=== PATIENT | male | born 1950 | race African-American/Black ===

== ENCOUNTER 2017-10-30 09:22 | Inpatient (IN) | payer MEDICARE, BC ==
[~2017-10-30 09:22] MED LIST: ACETAMINOPHEN 1,000 MG/100 ML BTL IV ONE; CEFAZOLIN 2 Gram 2 GM/50 ML BAG IVPB ONE; FAMOTIDINE 20MG TABLET PO ONE; MECLIZINE 25 MG TABLET PO ONE; METOCLOPRAMIDE 10 MG TABLET PO ONE
[2017-10-30] MEDS ORDERED: DIPHENHYDRAMINE HCL IV 50 MG/ML VIAL IVP ONE (13:06)
[2017-10-30] MEDS ORDERED: OXYCODONE/APAP 7.5MG/325MG TABLET PO PRN ×2 (13:45)
[2017-10-30] MEDS ORDERED: OXYCODONE HCL 5 MG TABLET PO PRN (13:45)
[2017-10-30] MEDS ORDERED: ZOLPIDEM TARTRATE 5 MG TABLET PO PRN (13:45)
[2017-10-30] MEDS ORDERED: METOCLOPRAMIDE HCL 10 MG/2 ML VIAL IVP PRN (13:45)
[2017-10-30] MEDS ORDERED: DIPHENHYDRAMINE HCL 25 MG CAPSULE PO PRN (13:45)
[2017-10-30] MEDS ORDERED: MAGNESIUM HYDROXIDE 30 ML UDC PO PRN (13:45)
[2017-10-30] MEDS ORDERED: SENNOSIDES/DOCUSATE SODIUM UD CAPSULE PO PRN (13:45)
[2017-10-30] MEDS ORDERED: HYDROCODONE/APAP 7.5/325MG TABLET PO PRN (13:45)
[2017-10-30] MEDS ORDERED: ONDANSETRON HCL IV 4 MG/2 ML VIAL IVP PRN (13:45)
[2017-10-30] MEDS ORDERED: TRAMADOL HCL 50 MG TABLET PO PRN ×2 (13:45)
[2017-10-30] MEDS ORDERED: AL HYDROX/MAG HYDROX 30ML UD PO PRN (13:45)
[2017-10-30] MEDS ORDERED: HYDROMORPHONE HCL 1 MG/ML SYRINGE IVP PRN (13:45)
[2017-10-30] MEDS ORDERED: ALBUTEROL HFA 8 GM INHALER INH PRN (13:49)
[2017-10-30] MEDS ORDERED: HYDROMORPHONE HCL 2 MG/ML VIAL IV PRN (14:15)
[2017-10-30] MEDS ORDERED: BUPIVACAINE LIPOSOME 266MG/20ML VIAL IV ONE (14:26)
[2017-10-30] MEDS ORDERED: TRANEXAMIC ACID 1,000 MG/10 ML ML IV ONE (14:26)
[2017-10-30] MEDS ORDERED: BUPIVACAINE 0.25% W/EPI MPF 30ML VIAL IVP ONE (14:26)
[2017-10-30] MEDS ORDERED: TRANEXAMIC ACID 1,000 MG in 0.9 % SODIUM CHLORIDE 100ML 100 ML IVPB ONE (15:00)
--- NOTE | 2017-10-30 16:54 | Rehab Evaluation ---
Patient Information - Patient Information Diagnosis: Left Knee OA Ordered Treatment: PT Evaluate and Treat Status: Initial Evaluation Surgery: Yes (L TKA) Date of Surgery: 10/30/17 History: Detail (Pt. reports history of degenerative changes at left knee.) Past Med/[place] Hx Detail: Detail (Scopes prior to TKA.) Past Medical/Surgical Hx: PAST MEDICAL/SURGICAL HISTORY Past Surgical History bilat knee scopes hemorrhoidectomy stent x 1 heart 2011 cataracts bilateral PMH - Respiratory Hx Respiratory Disorders Yes Hx Asthma Yes: good control inhaler prn usually in am Hx Bronchitis Yes Hx Pneumonia Yes: first time Hx Sleep Apnea Yes Hx of CPAP Yes Hx of SOB Yes PMH - Cardiovascular Hx Cardiovascular Disorders Yes Hx Abnormal EKG Yes Hx Cardiac Catheterization Yes Hx Edema Yes: occass le edema Hx Hypertension Yes: on meds good control Hx Irregular Heartbeat Yes: pt has extra beat Hx Coronary Artery Disease Yes Hx Coronary Stent Yes: 2011 Exercise Tolerance Fair PMH - Neuro Hx Neurological Disorders Yes Hx Cerebrovascular Accident Yes: June 2015 (Full Recovery) Hx Headaches Yes: occass. Hx Neuropathy Yes: legs and feet PMH - GI Hx Gastrointestinal Disorders Yes Hx Gastroesophageal Reflux Yes PMH - Hx Genitourinary Disorders No PMH - Endocrine Hx Endocrine Disorders Yes Hx Diabetes Yes: DM2 Hx of IDDM Yes Comment: well controlled A1C 6.2 blood sugars mid 100's PMH - Musculoskeletal Hx Musculoskeletal Disorders Yes Hx Arthritis Yes: knees PMH - Psych Hx Psychiatric Problems No PMH - Hematology/Oncology Hx Hematology/Oncology No Disorders Premorbid Status: Detail (Pt. reports slowly progressive degenerative changes at left knee.) Social History: Detail (Pt. lives in a single story home and has family members who are able to provide support. Pt. is retired. 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 Pt. has 1 step to enter home from garage. Pt. does not have to access the basement following surgery. Pt. has a front wheeled walker, single point cane, standard tub, and raised toilet seat. Pt. is scheduled for OP PT at [facility] following inpatient stay.) Precautions: [place], Fall - Time With Patient Total Time Spent With Patient (Min): 45 Treatment Procedures: Detail (Physical Therapy Evaluation Completed. PT asked nursing if pt. needed O2 prior to tx and pt. was given 2L of O2 at start of tx. Pt. was left supine with call light available, B IPC, CPM LLE, CRYO LLE, nursing was notified of pt.'s status. Pt. denied SOB or dizziness at start and end of tx. Pt. denied and removed O2 via nasal cannula and stated that he did not need oxygen, he just needed his CPAP.) Subjective Information - Subjective Information Per Patient (Pt. denied nausea, SOB, dizziness, or pain at start of tx and was found supine and A&Ox3. Pt. was not on O2 and did have CPAP near pt. Pt. had feeling in all toes. Nursing had documeted O2 levels of 93% earlier today, and stated that respiratory did not feel the pt. needed O2.) Objective Data - Pain Pain Present: No - Mental Status Patient Orientation: Oriented x3 - Visual Perception Appears within normal limits for therapeutic activities - ROM Not within normal limits (L knee was not tested for range of motion. RLE was WFL all planes of movement actively. B ankles WFL. BUE WFL all planes of movement actively.) - Strength/Tone Not within normal limits (L knee flexion and extension not tested via manual muscle test. B ankle plantarflexion and dorsiflexion 5/5. RLE 5/5 grossly. Pt. independently performed SLR with bed mobility and lifted himself via trapeeze and contralateral LE for positioning of operative leg into CPM. Pt. exhibitied functional core strength when seated at bedside for upright positioning.) - Coordination Appears within normal limits for therapeutic activities - Bed Mobility Needs Assist (Pt. required VC with bed mobility to avoid twisting the operative LE and to avoid excessive varus positioning of the knee with leg raises to CPM.) - Transfers Needs Assist (Pt. was independent with sit to stand and stand to sit transfer.) - Balance Balance Sitting: Good Balance Standing: Fair (Pt. exhibited withdrawal response and trunk lean to right with standing weight shifts onto operative LE, exhibiting poor standing balance/safety awareness.) - Sensation Intact - Gait Detail (Pt. stood for 1 minute and requested to sit back down secondary to fatigue and feeling "sleepy".) - ADL's/IADL's Detail (Not assessed.) - Special Tests No Therapy Assessment - Therapy Assessment Detail (Pt. exhibits LE ROM restriction, LE weakness, poor safety awareness with bed mobility and standing, and required assistance with positioning of the operative LE/verbalizing precautions.) Patient Education - Patient Education Teaching Topic: Discharge Instructions, Disease Process, Exercise/Activity (Pt. was instructed to perform ankle pumps, quad sets, glut sets, hamstring sets.), Precautions Response: Return Demonstration, Verbalize Understanding Teaching Method: Discussion, Demonstration Teaching Recipient: Patient, Family Barriers To Learning: Other (Poor reproduction of exercises following instruction secondary to lethargy.) Problem List - Problem List Physical Therapy Problem List: Detail (1) LE weakness 2) LE ROM restriction 3) Dependent with bed mobility 4) Poor safety awareness 5) Poor standing balance) Goals - Goals Physical Therapy Goals: 1) Pt. will independently and appropriately ambulate household distances with AD. 2) Pt. will ascend and descend at least 1 step safely for return to home environment. 3) Pt. will be independent with bed mobility and transfer. 4) Pt. will verbalize good understanding of his HEP, as well as precautions. Prognosis - Prognosis Good (Pt. is expected to complete all goals set at inpatient PT and transition safely to home environment.) Plan - Plan Physical Therapy Plan: Pt. is to be seen 1-2x per day for inpatient PT until goals met for safe D/C to home environment.
[2017-10-30] MEDS: HYDROCODONE/APAP 7.5/325MG TABLET PO PRN ×2 (18:11→19:16)
[2017-10-30] MEDS: NOVOLOG FLEXPEN (INSULIN ASPART) 100 UNITS/ML SQ SCH (18:12)
[2017-10-30] MEDS: CEFAZOLIN 2 Gram 2 GM/50 ML BAG IVPB SCH (18:14)
[2017-10-30] MEDS ORDERED: ACETAMINOPHEN 325 MG TAB PO ONE (22:11)
[2017-10-30] MEDS: ACETAMINOPHEN 325 MG TAB PO PRN (22:28)
[2017-10-30] MEDS: METOPROLOL TART 50 MG TABLET PO SCH (22:28)
[2017-10-30] MEDS: OXYCODONE HCL 5 MG TABLET PO PRN (22:29)
[2017-10-31] MEDS: RINGERS SOLUTION,LACTATED 1,000 ML IV SCH ×2 (01:03→06:33)
[2017-10-31] MEDS: CEFAZOLIN 2 Gram 2 GM/50 ML BAG IVPB SCH ×2 (02:27→10:48)
[2017-10-31] MEDS: OXYCODONE HCL 5 MG TABLET PO PRN ×2 (06:24→10:28)
[2017-10-31 06:32] LABS: HEMATOCRIT 34.7 % (42.0-52.0); HEMOGLOBIN 11.9 gm/dl (14.0-18.0); MEAN CELL VOLUME 75.8 fl (81-97); MEAN CORPUSCULAR HGB CONC 34.3 g/dl (32-36); MEAN PLATELET VOLUME 10.2 fl (7.4-10.4); PLATELET COUNT 221 K/uL (130-400); RED BLOOD COUNT 4.58 M/uL (4.40-5.70); WHITE BLOOD COUNT W/O DIFF 9.2 K/uL (4.2-12.2)
[2017-10-31 06:33] LABS: MEAN CORPUSCULAR HEMOGLOBIN 25.9 pg (27-33)
[2017-10-31] MEDS ORDERED: PANTOPRAZOLE SODIUM 40 MG TABLET PO SCH (07:00)
[2017-10-31] MEDS: NOVOLOG FLEXPEN (INSULIN ASPART) 100 UNITS/ML SQ SCH ×3 (08:14→17:39)
[2017-10-31] MEDS ORDERED: LEVEMIR FLEXTOUCH 100 UNIT/ML INSULIN PEN SQ SCH (10:00)
[2017-10-31] MEDS ORDERED: HYDROCHLOROTHIAZIDE 12.5 MG CAPSULE PO SCH (10:00)
[2017-10-31] MEDS ORDERED: ATORVASTATIN 20 MG TABLET PO SCH (10:00)
[2017-10-31] MEDS ORDERED: LOSARTAN POTASSIUM 100 MG TABLET PO SCH (10:00)
[2017-10-31] MEDS ORDERED: LORATADINE 10 MG TABLET PO SCH (10:00)
[2017-10-31] MEDS: METOPROLOL TART 50 MG TABLET PO SCH (10:28)
--- NOTE | 2017-10-31 11:06 | Physical Therapy Tx Note ---
Physical Therapy Tx Note - Treatment Note Tolerated: Good Total Time Spent With Patient: 30 Physical Therapy Tx Note: Detail (The patient was sitting in his chair upon arrival. The patient was able to transfer from sit to stand independently. He was able to ambulate for about 20 feet x2 with 2WW and WBAT on L and required supervision for safety. Upon return to his room, the patient requested to go back to his bed. The patient required verbal cues to lift the affected leg with the unaffected leg into the bed. The patient was independent with scooting to the middle of the bed, but required use of the trapeze to aid with scooting and sit to supine. The patient was left laying bed with his call light in reach.) Physical Therapy Problem List: Detail (1) LE weakness 2) LE ROM restriction 3) Dependent with bed mobility 4) Poor safety awareness 5) Poor standing balance) Physical Therapy Goals: 1) Pt. will independently and appropriately ambulate household distances with AD. 2) Pt. will ascend and descend at least 1 step safely for return to home environment. 3) Pt. will be independent with bed mobility and transfer. 4) Pt. will verbalize good understanding of his HEP, as well as precautions. Prognosis: Good Physical Therapy Plan: Pt. is to be seen 1-2x per day for inpatient PT until goals met for safe D/C to home environment.
--- NOTE | 2017-10-31 12:50 | Operative Note ---
DATE OF SURGERY: 10/30/2017 Surgeon: Giovanni Hernandez DO PREOPERATIVE DIAGNOSIS: Primary osteoarthritis of the left knee. POSTOPERATIVE DIAGNOSIS: Primary osteoarthritis of the left knee. OPERATION: Left total knee arthroplasty. DESCRIPTION OF PROCEDURE: This 66-year-old male was taken to the operating room and placed in the supine position on the operating room table. Spinal anesthesia was induced by department of anesthesia. Following satisfactory anesthetic, the left lower extremity was elevated. It was prepped with Hibiclens and draped in the usual sterile fashion. Exsanguinated and the tourniquet inflated to 300 mmHg. All scrub personnel wore personal isolation suits. An anterior longitudinal midline incision was made followed by medial parapatellar arthrotomy incision. Intracondylar drill hole was made for the intramedullary alignment amado and a 10 mm 6-degree valgus cut was made in the distal femur because the patient did have a very slight flexion contracture. Wafers of bone were removed. Sizing jig was affixed. A size 72.5 was seen to be the appropriate size. The 4-in-1 cutting block was then used to cut the femur and the wafers of bone were removed. The 4-in-1 cutting block was pinned in 3 degrees of external rotation and appropriate cuts were made. We then directed our attention to the proximal tibia and an extramedullary alignment guide was used to cut the proximal tibia referencing a 10 mm cut off the lateral tibial plateau. Once the cutting block had been set in appropriate position, a 3-degree posterior slope cut was made and appropriate cut yielded a segment of bone which was removed. The remnants of the menisci and osteophytes were removed from the posterior aspect of the joint. The proximal tibia was sized to a 79 and stem punch was subsequently used. Trial components were then inserted and a 12 mm bearing was seen to be the appropriate size and the patella was cut and restored to anatomic height with a 37 x 8.6 mm patella. With the trial components in place, the knee was taken through range of motion with excellent stability, and full extension of the knee was possible with full flexion without instability. The joint was then copiously irrigated with positive lavage, lactated Ringer's solution after the trial components had been removed. The posterior, medial, and lateral corners of the joint were injected with Exparel and all bony surfaces were dried and excess cement removed after the insertion of each component. Initially, the tibial baseplate was placed followed by the tibial bearing, femoral component, and finally the patella. Once the cement had hardened, the remainder of the Exparel was injected into the periosteum and joint capsule of the proximal tibia and distal femur. The knee was seen to be very stable. A drain was placed through a separate stable incision. The arthrotomy incision was closed with #2 Vicryl. Subcutaneous tissue closed with 0 Vicryl. Skin was stapled with a Polar pack applied and the patient taken to the recovery room in satisfactory condition. GROSS PATHOLOGY: This patient demonstrated severe osteoarthritis especially noted in the medial compartment with full-thickness articular cartilage loss being noted there as well as at the patellofemoral joint with grade 2-3 changes noted in the lateral compartment. Small loose joint bodies were also identified and removed. MTDD
[2017-10-31] MEDS ORDERED: NALOXONE 0.4 MG/1 ML VIAL IV ONE (13:37)
[2017-10-31] MEDS ORDERED: HYDROMORPHONE HCL 2 MG/ML VIAL IV ONE (13:37)
[2017-10-31] MEDS ORDERED: PHENYLEPHRINE HCL 10 MG/ML VIAL IVP ONE (13:37)
[2017-10-31] MEDS ORDERED: FENTANYL PF 100MCG/2ML VIAL IV ONE (13:37)
[2017-10-31] MEDS ORDERED: ONDANSETRON HCL IV 4 MG/2 ML VIAL IVP ONE (13:37)
[2017-10-31] MEDS ORDERED: MIDAZOLAM HCL 2MG/2ML VIAL IV ONE (13:37)
[2017-10-31] MEDS ORDERED: PROPOFOL 10 MG/ML VIAL IV ONE (13:37)
--- NOTE | 2017-10-31 13:55 | Rehab Evaluation ---
Patient Information - Patient Information Diagnosis: Left Knee OA Ordered Treatment: OT Evaluate and Treat Status: Initial Evaluation Surgery: Yes (L TKA) Date of Surgery: 10/30/17 Past Medical/Surgical Hx: PAST MEDICAL/SURGICAL HISTORY Past Surgical History bilat knee scopes hemorrhoidectomy stent x 1 heart 2012 cataracts bilateral PMH - Respiratory Hx Respiratory Disorders Yes Hx Asthma Yes: good control inhaler prn usually in am Hx Bronchitis Yes Hx Pneumonia Yes: first time Hx Sleep Apnea Yes Hx of CPAP Yes Hx of SOB Yes PMH - Cardiovascular Hx Cardiovascular Disorders Yes Hx Abnormal EKG Yes Hx Cardiac Catheterization Yes Hx Edema Yes: occass le edema Hx Hypertension Yes: on meds good control Hx Irregular Heartbeat Yes: pt has extra beat Hx Coronary Artery Disease Yes Hx Coronary Stent Yes: 2011 Exercise Tolerance Fair PMH - Neuro Hx Neurological Disorders Yes Hx Cerebrovascular Accident Yes: June 2015 (Full Recovery) Hx Headaches Yes: occass. Hx Neuropathy Yes: legs and feet PMH - GI Hx Gastrointestinal Disorders Yes Hx Gastroesophageal Reflux Yes PMH - Hx Genitourinary Disorders No PMH - Endocrine Hx Endocrine Disorders Yes Hx Diabetes Yes: DM2 Hx of IDDM Yes Comment: well controlled A1C 6.2 blood sugars mid 100's PMH - Musculoskeletal Hx Musculoskeletal Disorders Yes Hx Arthritis Yes: knees PMH - Psych Hx Psychiatric Problems No PMH - Hematology/Oncology Hx Hematology/Oncology No Disorders Premorbid Status: Detail (Pt lives with in a 1 story house with 1 step and 1 railing at the entrance. He has a tub/shower combination with seat, no grab bars and an elevated toilet with grab bars. He is normally responsible for home mgmt, meal prep and laundry but and daughter will be assisting after discharge. 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.) Precautions: [place], Fall - Time With Patient Total Time Spent With Patient (Min): 35 Treatment Procedures: Detail (OT eval low complexity) Subjective Information - Subjective Information Per Patient Objective Data - Pain Pain Present: Yes (-04/17) - Mental Status Patient Orientation: Oriented x3 - Visual Perception Appears within normal limits for therapeutic activities - ROM Within normal limits (José Manuel UE AROM WNL) - Strength/Tone Within normal limits (José Manuel UE strength WNL) - Coordination Appears within normal limits for therapeutic activities - Bed Mobility Independent (Ind with supine to sit.) - Transfers Independent (Ind with sit to stand from EOB and chair.) - Balance Balance Sitting: Good Balance Standing: Fair - Sensation Intact - Gait Detail (Pt ambulated to toilet and then back to chair with 2 wheeled walker Indly.) - ADL's/IADL's Detail (Pt educated and demonstrated learning of LE dressing using modified dressing techniques.) Therapy Assessment - Therapy Assessment Detail (Pt Ind with LE dressing using modified techniques.) Problem List - Problem List Physical Therapy Problem List: Detail (1) LE weakness 2) LE ROM restriction 3) Dependent with bed mobility 4) Poor safety awareness 5) Poor standing balance) Occupational Therapy Problem List: Detail (No current OT problems identified.) Goals - Goals Physical Therapy Goals: 1) Pt. will independently and appropriately ambulate household distances with AD. 2) Pt. will ascend and descend at least 1 step safely for return to home environment. 3) Pt. will be independent with bed mobility and transfer. 4) Pt. will verbalize good understanding of his HEP, as well as precautions. Occupational Therapy Goals: No current OT goals identified. Prognosis - Prognosis Good Plan - Plan Physical Therapy Plan: Pt. is to be seen 1-2x per day for inpatient PT until goals met for safe D/C to home environment. Occupational Therapy Plan: No further IP OT recommended. Thank you for this referral.
[2017-10-31] MEDS: ACETAMINOPHEN 325 MG TAB PO PRN (14:43)
--- NOTE | 2017-10-31 16:24 | Physical Therapy Tx Note ---
Physical Therapy Tx Note - Treatment Note Tolerated: Good Total Time Spent With Patient: 30 Physical Therapy Tx Note: Detail (The patient was laying in bed upon arrival. The patient was able to transfer from supine to sit with the use of bed rails, but otherwise independent. He was able to transfer from sit to stand independently. He was able to ambulate from his room to the nurse's station (26 feet) using WBAT on R and a 2WW. He required supervision only during ambulation. He was able to ascend/descend 3 stairs with supervision for safety and verbal cues for proper gait pattern. He required CGA x1 for completing the stairs. He was returned to his room via wheelchair due to increased fatigue. Upon arrival, he was able to transfer back to bed independently, but with use of the bed rails for scooting. The patient's HEP was reviewed, which included: ankle pumps, glute. sets, quad sets, hamstring sets, and SLR. He was advised to complete 10 reps 1-2x/day. He returned demonstration and verbalized understanding. He was left in bed with his call light in reach.) Physical Therapy Problem List: Detail (1) LE weakness 2) LE ROM restriction 3) Dependent with bed mobility 4) Poor safety awareness 5) Poor standing balance) Physical Therapy Goals: 1) Pt. will independently and appropriately ambulate household distances with AD - MET - About 26 feet. 2) Pt. will ascend and descend at least 1 step safely for return to home environment - MET - required supervision only. 3) Pt. will be independent with bed mobility and transfer - MET - with use of bed rails for assistance. 4) Pt. will verbalize good understanding of his HEP, as well as precautions. Prognosis: Good Physical Therapy Plan: All inpatient PT goals have been met, and the patient will be starting outpatient PT starting Friday (11/03).
--- NOTE | 2017-11-03 10:40 | Discharge Summary ---
DATE OF ADMISSION: 10/30/2017 DATE OF DISCHARGE: 10/31/2017 SURGEON: Giovanni Hernandez DO ADMITTING DIAGNOSIS: Osteoarthritis of the left knee. DISCHARGE DIAGNOSIS: Osteoarthritis of the left knee. OPERATIVE PROCEDURE: Elective left total knee arthroplasty. HISTORY OF PRESENT ILLNESS: This 66 -year-old male was admitted to the hospital for elective total knee arthroplasty and tolerated the operative procedure well and progressed satisfactorily with physical therapy and did clear physical therapy. The patient had some intermittent low-grade fevers, which were treated with Tylenol , which seemed to bring his temperature down to normal, but these were intermittent, possibly due to other medications (narcotics). The patient, otherwise, was doing well. He had no sign of any DVT or wound infection. The patient will be discharged today. He is instructed to use his Polar Care device and his BOB hose during the day and remove them at night. He will take Percocet 7.5/325 1 or 2 every 6 hours as necessary for pain. He was given 60. He will also continue with his Eliquis 5 mg p.o. b.i.d. He will have outpatient physical therapy. Routine wound care instructions were given. He will follow up in my office in 2 weeks for staple removal. Should he have any problems prior to being seen, he was instructed to call my office. EDGAR
== END 2017-10-31 18:45 | disposition home or self-care (01) | DRG 470 ==
LOC: MEDSURG 09:22
PROVIDERS: ADMIT Orthopaedic Surgery; ATTEND Orthopaedic Surgery
PROC: 0SRD069 Replacement of Left Knee Joint with Oxidized Zirconium on Polyethylene Synthetic Substitute, Cemented, Open Approach (ICD-10-PCS; principal; 2017-10-30 11:30)
DX: M17.12 Unilateral primary osteoarthritis, left knee (principal); I10 Essential (primary) hypertension; E78.00 Pure hypercholesterolemia, unspecified; E11.9 Type 2 diabetes mellitus without complications; Z79.4 Long term (current) use of insulin; Z86.73 Personal history of transient ischemic attack (TIA), and cerebral infarction without residual deficits; Z79.01 Long term (current) use of anticoagulants; I25.10 Atherosclerotic heart disease of native coronary artery without angina pectoris
CPT/HCPCS: 36416; 82948; 85025; 97110; 97165; 97530; J1200; J2310; J2370; J2405; J7120

== ENCOUNTER 2019-03-17 11:48 | Emergency (ER) | payer MEDICARE, BC ==
[2019-03-17] MEDS ORDERED: METHYLPREDNISOLONE PF 125MG/VIAL IVP ONE (12:35)
--- NOTE | 2019-03-17 12:38 | Emergency Department Record ---
History of Present Illness - General Chief complaint: Male Urogenital Problem Stated complaint: RT SIDE GROIN PAIN Time Seen by Provider: 03/17/19 12:07 Mode of Arrival: Ambulatory - History of Present Illness Initial comments: right hip pain and started about March 12 and running around on the alot , no falls or trauma Onset/Timin -: Week(s) Location: Right inguinal region Severity: Moderate Severity scale (1-10): 7 Quality: Aching, Sharp Consistency: Constant Improves with: None Worsens with: None Reports: Denies other symptoms - Related Data Home Medications Medication Instructions Recorded Confirmed Last Taken Apixaban [Eliquis] 5 mg PO BID 03/17/19 03/17/19 03/17/19 Dulaglutide [Trulicity] 03/17/19 03/17/19 03/17/19 Insulin Glargine,Hum.rec.anlog 03/17/19 03/17/19 [Lantus Solostar] Montelukast Sodium 10 mg PO DAILY 03/17/19 03/17/19 03/17/19 Previous Rx's Medication Instructions Recorded Hydrocodone/Acetaminophen [[place] 1 each PO Q6HR #12 tablet 03/17/19 5-325 Tablet] Prednisone [Prednisone 10Mg] 10 mg PO ASDIR #20 tab 03/17/19 Allergies Allergy/AdvReac Type Severity Reaction Status Date / Time carvedilol [From Coreg] Allergy HIVES Verified 03/17/19 12:06 metformin AdvReac ITCHING Verified 03/17/19 12:06 Travel Screening - Travel/Exposure Within Last 30 Days Have you traveled within the last 30 days?: No - Travel/Exposure Within Last Year Have you traveled outside the [place] in the last year?: No - Additonal Travel Details Have you been exposed to anyone with a communicable illness?: No - Travel Symptoms Symptom Screening: None Review of Systems Reviewed: No additional complaints except as noted below Constitutional: Reports: As per HPI. Denies: Chills, Fever, Malaise, Night sweats, Weakness, Weight change Eyes: Reports: As per HPI. Denies: Eye discharge, Eye pain, Photophobia, Vision change ENT: Reports: As per HPI. Denies: Congestion, Dental pain, Ear pain, Epistaxis, Hearing loss, Throat pain Respiratory: Reports: As per HPI. Denies: Cough, Dyspnea, Hemoptysis, Stridor, Wheezes Cardiovascular: Reports: As per HPI. Denies: Arrhythmia, Chest pain, Dyspnea on exertion, Edema, Murmurs, Orthopnea, Palpitations, Paroxysmal nocturnal dyspnea, Rheumatic Fever, Syncope Endocrine: Reports: As per HPI. Denies: Fatigue, Heat or cold intolerance, Polydipsia, Polyuria Gastrointestinal: Reports: As per HPI. Denies: Abdominal pain, Constipation, Diarrhea, Hematemesis, Hematochezia, Melena, Nausea, Vomiting Genitourinary: Reports: As per HPI. Denies: Dysuria, Frequency, Hematuria, Incontinence, Retention, Testicular pain, Testicular mass, Urgency Musculoskeletal: Reports: As per HPI, Other (right hip pain). Denies: Arthralgia, Back pain, Gout, Joint swelling, Myalgia, Neck pain Skin: Reports: As per HPI. Denies: Bruising, Change in color, Change in hair/nails, Lesions, Pruritus, Rash Neurological: Reports: As per HPI. Denies: Abnormal gait, Confusion, Headache, Numbness, Paresthesias, Seizure, Tingling, Tremors, Vertigo, Weakness Psychiatric: Reports: As per HPI. Denies: Anxiety, Auditory hallucinations, Depression, Homicidal thoughts, Suicidal thoughts, Visual hallucinations Hematological/Lymphatic: Reports: As per HPI. 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) Hx Coronary Artery Disease: Yes - NEURO Hx Neuro Disorders: Yes Hx Neuropathy: Yes (legs and feet) - GI Hx GI Disorders: Yes Hx of Polyps: Yes - Hx Genitourinary Disorders: No - ENDOCRINE Hx Endocrine Disorders: Yes Comment:: well controlled A1C 6.2 blood sugars mid 100's - MUSCULOSKELETAL Hx Musculoskeletal Disorders: Yes Hx Arthritis: Yes (knees) - PSYCH Hx Psych Problems: No - HEMATOLOGY/ONCOLOGY Hx Hematology/Oncology Disorders: No Family Medical History Any Significant Family History?: Yes Hx Diabetes: Father, Brother/Sister Hx Heart Disease: Mother Physical Exam - General General Appearance: Alert, Oriented x3, Cooperative, No acute distress - Head Head exam: Normal inspection - Eye Eye exam: Normal appearance, PERRL Pupils: Normal accommodation - ENT ENT exam: Normal exam, Mucous membranes moist, Normal external ear exam, Normal orophraynx, TM's normal bilaterally Ear exam: Normal external inspection. negative: External canal tenderness Nasal Exam: Normal inspection. negative: Discharge, Sinus tenderness Mouth exam: Normal external inspection, Tongue normal Teeth exam: Normal inspection. negative: Dental caries Throat exam: Normal inspection. negative: Tonsillar erythema, Tonsillar exudate - Neck Neck exam: Normal inspection, Full ROM. negative: Tenderness - Respiratory Respiratory exam: Normal lung sounds bilaterally. negative: Respiratory distress - Cardiovascular Cardiovascular Exam: Regular rate, Normal rhythm, Normal heart sounds - GI/Abdominal GI/Abdominal exam: Soft, Normal bowel sounds. negative: Tenderness - Rectal Rectal exam: Deferred - exam: Deferred - Extremities Extremities exam: Normal inspection, Normal capillary refill, Tenderness (right pain with motion) - Back Back exam: Reports: Normal inspection, Full ROM. Denies: Muscle spasm, Rash noted, Tenderness - Neurological Neurological exam: Alert, Normal gait, Oriented X3, Reflexes normal - Psychiatric Psychiatric exam: Normal affect, Normal mood - Skin Skin exam: Dry, Intact, Normal color, Warm Course Vital Signs 03/17/19 12:14 Temperature 98.7 F Pulse Rate 85 Respiratory 18 Rate Blood Pressure 136/78 Pulse Ox 99 Medical Decision Making - Data Complexity MDM Data: Labs Ordered and/or Reviewed, X-Ray Ordered and/or Reviewed (no fractures seen) - Lab Data Result diagrams: 03/17/19 13:05 03/17/19 13:05 Disposition Clinical Impression: Strain of hip Qualifiers: Encounter type: initial encounter Laterality: right Qualified Code(s): S76.011A - Strain of muscle, fascia and tendon of right hip, initial encounter Osteoarthritis Qualifiers: Osteoarthritis location: hip Osteoarthritis type: post-traumatic Laterality: right Qualified Code(s): M16.51 - Unilateral post-traumatic osteoarthritis, right hip Condition: (1) Good Instructions: Musculoskeletal Pain (ED), Hip Sprain (ED) Additional Instructions: follow up with family in one week tylenol for pain and norco for severe pain Prescriptions: Hydrocodone/Acetaminophen [[place] 5-325 Tablet] 1 each PO Q6HR #12 tablet Prednisone [Prednisone 10Mg] 10 mg PO ASDIR #20 tab Forms: Patient Portal Access Time of Disposition: 14:47 Quality - Quality Measures Quality Measures: N/A - Blood Pressure Screening Does Patient Have Any of the Following: No Blood Pressure Classification: Pre-Hypertensive BP Reading Systolic Measurement: 136 Diastolic Measurement: 78 Screening for High Blood Pressure: < Pre-Hypertensive BP, F/U Documented > [G8950] Pre-Hypertensive Follow-up Interventions: Referral to alternative/primary care provider.
[2019-03-17 13:14] LABS: ABSOLUTE NEUTROPHIL COUNT 6.59; HEMATOCRIT 32.9 % (42.0-52.0); HEMOGLOBIN 10.7 gm/dl (14.0-18.0); MEAN CELL VOLUME 64.4 fl (81-97); MEAN CORPUSCULAR HEMOGLOBIN 20.9 pg (27-33); MEAN CORPUSCULAR HGB CONC 32.5 g/dl (32-36); MEAN PLATELET VOLUME 10.3 fl (7.4-10.4); PLATELET COUNT 386 K/uL (130-400); RED BLOOD COUNT 5.11 M/uL (4.40-5.70); RED CELL DISTRIBUTION WIDTH 17.9 % (11.5-14.5); WHITE BLOOD COUNT W/O DIFF 10.2 K/uL (4.2-12.2)
[2019-03-17 13:33] LABS: BLOOD UREA NITROGEN 8 mg/dL (8-23); CREATININE 0.9 mg/dL (0.7-1.2); EST GLOMERULAR FILTRATION RATE > 60 mL/min
[2019-03-17 13:36] LABS: GLUCOSE,RANDOM 85 mg/dL (74-109)
[2019-03-17 13:39] LABS: C-REACTIVE PROTEIN 7.05 mg/dL (<0.5)
--- NOTE | 2019-03-19 18:24 | RADIOLOGY REPORT ---
STUDY: Unilateral right hip. CLINICAL HISTORY: Severe right-sided groin pain with motion 1 week post twisting injury. TECHNIQUE: An AP view of the pelvis is obtained as well as AP and frog leg lateral views of the right hip. COMPARISON: None. FINDINGS: There is normal bone mineralization. No fracture, dislocation, or destructive bone lesion is seen. Mild osteoarthritic changes of each hip are suggested. Mild marginal spurring of the inferior aspects of the sacroiliac joints also noted. Maac-uo-skvlfrln degenerative changes of the lower lumbar spine. IMPRESSION: 1. No acute fracture or dislocation. 2. Mild osteoarthritic changes of each hip. MTDD
== END 2019-03-17 15:05 | disposition home or self-care (01) ==
LOC: ER 11:48
DX: S76.011A Strain of muscle, fascia and tendon of right hip, initial encounter (principal); M16.51 Unilateral post-traumatic osteoarthritis, right hip; X50.3XXA Overexertion from repetitive movements, initial encounter; E11.9 Type 2 diabetes mellitus without complications; Z79.4 Long term (current) use of insulin; Z87.891 Personal history of nicotine dependence; Z79.01 Long term (current) use of anticoagulants
CPT/HCPCS: 80048; 84550; 85027; 86140; 96374; 99284; J2930

== ENCOUNTER 2019-10-14 11:47 | Day surgery (SDC) | payer BC, MEDICARE ==
[2019-10-14] MEDS ORDERED: LIDOCAINE 2% MDV (20MG/ML) 20ML VIAL IV ONE (11:48)
[2019-10-14] MEDS ORDERED: PROPOFOL 10 MG/ML VIAL IV ONE (11:48)
--- NOTE | 2019-10-22 10:51 | Operative Note ---
OPERATION: COLONOSCOPY. PREOPERATIVE DIAGNOSIS: Anemia. POSTOPERATIVE DIAGNOSES: 1. Sigmoid diverticulosis. 2. Sigmoid polyp. PREPARATION QUALITY: Good. ESTIMATED BLOOD LOSS: Minimum. SPECIMENS: Sigmoid colon. COMPLICATIONS: None apparent. PROCEDURE: After informed consent was obtained from the patient, he was placed in the left lateral decubitus position in the endoscopy suite, sedated and monitored by the department of anesthesia. Digital rectal exam was unremarkable. A well-lubricated [id number] colonoscope was inserted into the rectum and advanced to the cecum. The cecum, cecal bulb, ileocecal valve, appendiceal orifice, ascending colon, transverse colon, and descending colon were free of inflammatory changes, mass lesions or polyps. The ascending colon was unremarkable. The transverse colon and descending colon were unremarkable. The sigmoid colon revealed a diminutive polyp removed with a cold forceps. There were also scattered diverticula noted. No obvious bleeding lesions were seen throughout the length of the colon. The rectum revealed multiple hyperplastic- appearing polyps which were too numerous to count and had been previously seen on a prior exam 6-7 years ago. J-turn views of the anorectum were unremarkable. The endoscope was straightened, the rectal ampulla deflated, and the endoscope was removed. RECOMMENDATIONS: I would suggest the patient consider undergoing further GI testing, particularly an upper endoscopy to further evaluate his anemia. I will discuss this matter further with him. As always, thank you for allowing me to participate in the healthcare of your patients. EDGAR
== END 2019-10-14 13:30 | disposition home or self-care (01) ==
LOC: HOP 11:47
PROVIDERS: ATTEND Internal Medicine Gastroenterology
DX: K63.5 Polyp of colon (principal); K57.30 Diverticulosis of large intestine without perforation or abscess without bleeding; Z79.01 Long term (current) use of anticoagulants; E11.9 Type 2 diabetes mellitus without complications; Z79.4 Long term (current) use of insulin; I10 Essential (primary) hypertension; E78.00 Pure hypercholesterolemia, unspecified; J44.9 Chronic obstructive pulmonary disease, unspecified

== ENCOUNTER 2019-10-29 18:31 | Emergency (ER) | payer MEDICARE, BC ==
[2019-10-29] MEDS ORDERED: ACETAMINOPHEN 1,000 MG/100 ML BTL IVPB ONE (18:49)
--- NOTE | 2019-10-29 18:58 | Emergency Department Record ---
History of Present Illness - General Chief complaint: Pain Stated complaint: LT KNEE PAIN AND SWELLING Time Seen by Provider: 10/29/19 18:42 Source: Patient Mode of Arrival: Wheelchair Limitations: No limitations - History of Present Illness Initial comments: The patient is here due to L knee pain for 2 days with a fever. He denies any trauma, injury, ST, cough or dysuria. The patient does have a hx of a L knee replacement 2 years ago and is on Eliquis for Afib. MD Complaint: Extremity pain, Joint pain Onset/Timin -: Days(s) Location: Left, Knee Severity scale (1-10): 7 Quality: Aching Consistency: Constant Improves with: Nothing Worsens with: Walking, Weight bearing Associated Symptoms: Denies other symptoms - Related Data Allergies Allergy/AdvReac Type Severity Reaction Status Date / Time carvedilol [From Coreg] Allergy HIVES Verified 09/02/19 11:37 metformin AdvReac ITCHING Verified 09/02/19 11:37 Travel/Exposure Screening - Travel/Exposure Within Last 30 Days Have you traveled within the last 30 days?: No - Additonal Travel/Exposure Details Have you been exposed to anyone with a communicable illness?: No Review of Systems Constitutional: Reports: Fever, Malaise. 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) Hx Coronary Artery Disease: Yes - NEURO Hx Neuro Disorders: Yes Hx Neuropathy: Yes (legs and feet) - GI Hx GI Disorders: Yes Hx of Polyps: Yes - Hx Genitourinary Disorders: No - ENDOCRINE Hx Endocrine Disorders: Yes Hx Diabetes: Yes Hx Thyroid Disease: No Comment:: well controlled A1C 6.2 blood sugars mid 100's - MUSCULOSKELETAL Hx Musculoskeletal Disorders: Yes Hx Arthritis: Yes (knees) - PSYCH Hx Psych Problems: No - HEMATOLOGY/ONCOLOGY Hx Hematology/Oncology Disorders: Yes Hx Anemia: Yes Family Medical History Any Significant Family History?: Yes Hx Diabetes: Father, Brother/Sister Hx Heart Disease: Mother Physical Exam - General General Appearance: Alert, Cooperative, No acute distress - Head Head exam: Atraumatic, Normocephalic - Eye Eye exam: Normal appearance - ENT Throat exam: Normal inspection. negative: Tonsillar erythema, Tonsillar exudate - Neck Neck exam: Normal inspection, Full ROM. negative: Tenderness - Respiratory Respiratory exam: Normal lung sounds bilaterally. negative: Respiratory distres s - Cardiovascular Cardiovascular Exam: Regular rate, Normal rhythm, Normal heart sounds - Extremities Extremities exam: Joint swelling, Tenderness. negative: Normal inspection (The L knee has a significant effusion and is diffusely tender.), Full ROM, Normal capillary refill - Neurological Neurological exam: Alert, Normal gait. negative: Abnormal gait, Motor sensory deficit Course Vital Signs 10/29/19 18:34 Temperature 100.1 F H Pulse Rate 68 Respiratory 20 Rate Blood Pressure 137/87 Pulse Ox 96 - Reevaluation(s) Reevaluation #1: The patient is doing very well at this time but is still having the L knee pain. 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 I did discuss the case with his Orthopedic doctor who is Dr. Hernandez and he is unfortunately unavailable and out of town. Due to that the patient would like to go to [facility] where [place] PCP is so I did discuss the case with Dr. Betancourt in the ER and she did accept the patient in an ER to ER transfer. The patient does have his son here who would like to drive him there. I did discuss the fact that I did not give the patient any IV Abx's because I do belie ve the Orthopedic doctors would like to aspirate the joint first and Dr. Betancourt did agree. 10/29/19 19:47 Medical Decision Making - Data Complexity MDM Data: Labs Ordered and/or Reviewed - Lab Data Result diagrams: 10/29/19 19:10 10/29/19 19:10 Disposition Disposition: Transfer Clinical Impression: Effusion of left knee Disposition: Acute Care Hospital Transfer Transfer To: [facility] [place] Reason For Transfer: Orthopedic doctor Accepting Physician: [place] Time Discussed w/Accepting Physician: 19:53 Condition: (2) Stable Forms: Patient Portal Access Time of Disposition: 19:53 Quality - Quality Measures Quality Measures: N/A - Blood Pressure Screening View Details: Yes Does Patient Have Any of the Following: No Blood Pressure Classification: Pre-Hypertensive BP Reading Systolic Measurement: 137 Diastolic Measurement: 87 Screening for High Blood Pressure: < Pre-Hypertensive BP, F/U Documented > [G8950] Pre-Hypertensive Follow-up Interventions: Referral to alternative/primary care provider.
[2019-10-29 19:18] LABS: ABSOLUTE NEUTROPHIL COUNT 10.65; HEMATOCRIT 44.7 % (42.0-52.0); HEMOGLOBIN 14.5 gm/dl (14.0-18.0); MEAN CELL VOLUME 69.3 fl (81-97); MEAN CORPUSCULAR HGB CONC 32.4 g/dl (32-36); PLATELET COUNT 350 K/uL (130-400); RED BLOOD COUNT 6.45 M/uL (4.40-5.70); RED CELL DISTRIBUTION WIDTH 25.6 % (11.5-14.5); WHITE BLOOD COUNT W/O DIFF 12.8 K/uL (4.2-12.2)
[2019-10-29 19:26] LABS: MEAN CORPUSCULAR HEMOGLOBIN 22.4 pg (27-33)
[2019-10-29 19:27] LABS: PLATELET ESTIMATE NORMAL (NORMAL)
[2019-10-29 19:31] LABS: PARTIAL THROMBOPLASTIN TIME 31.3 SECONDS (24.5-39.1); PROTHROMBIN TIME (PATIENT) 10.7 SECONDS (9.5-12.1)
[2019-10-29 19:32] LABS: BLOOD UREA NITROGEN 9 mg/dL (8-23); EST GLOMERULAR FILTRATION RATE > 60 mL/min; TOTAL PROTEIN 7.8 g/dL (6.6-8.7)
[2019-10-29 19:34] LABS: GLUCOSE,RANDOM 160 mg/dL (74-109)
[2019-10-29 19:37] LABS: ALBUMIN 4.2 g/dL (4.0-5.0); ALKALINE PHOSPHATASE 87 U/L (40-129); ALT/SGPT 7 U/L (<41); AST/SGOT 8 U/L (10.0-50.0); BILIRUBIN,DIRECT 0.2 mg/dL (0-0.3); C-REACTIVE PROTEIN 14.05 mg/dL (<0.5)
--- NOTE | 2019-10-29 19:59 | Emergency Department Record ---
History of Present Illness - General Chief complaint: Pain Stated complaint: LT KNEE PAIN AND SWELLING Time Seen by Provider: 10/29/19 18:42 Source: Patient Mode of Arrival: Wheelchair Limitations: No limitations - History of Present Illness Onset/Timin -: Days(s) Location: Left, Knee Severity scale (1-10): 7 Quality: Aching Consistency: Constant Improves with: Nothing Worsens with: Walking, Weight bearing Associated Symptoms: Denies other symptoms - Related Data Allergies Allergy/AdvReac Type Severity Reaction Status Date / Time carvedilol [From Coreg] Allergy HIVES Verified 09/02/19 11:37 metformin AdvReac ITCHING Verified 09/02/19 11:37 Travel/Exposure Screening - Travel/Exposure Within Last 30 Days Have you traveled within the last 30 days?: No - Additonal Travel/Exposure Details Have you been exposed to anyone with a communicable illness?: No Review of Systems Constitutional: Reports: Fever, Malaise. 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) Hx Coronary Artery Disease: Yes - NEURO Hx Neuro Disorders: Yes Hx Neuropathy: Yes (legs and feet) - GI Hx GI Disorders: Yes Hx of Polyps: Yes - Hx Genitourinary Disorders: No - ENDOCRINE Hx Endocrine Disorders: Yes Hx Diabetes: Yes Hx Thyroid Disease: No Comment:: well controlled A1C 6.2 blood sugars mid 100's - MUSCULOSKELETAL Hx Musculoskeletal Disorders: Yes Hx Arthritis: Yes (knees) - PSYCH Hx Psych Problems: No - HEMATOLOGY/ONCOLOGY Hx Hematology/Oncology Disorders: Yes Hx Anemia: Yes Family Medical History Any Significant Family History?: Yes Hx Diabetes: Father, Brother/Sister Hx Heart Disease: Mother Physical Exam - General Limitations: No limitations - Extremities Extremities exam: Other (The L knee is slightly warm to the touch but without any erythema.). negative: Normal inspection Course Vital Signs 10/29/19 10/29/19 18:34 19:39 Temperature 100.1 F H Pulse Rate 68 Pulse Rate [ 93 H Pulse Ox Probe] Respiratory 20 Rate Blood Pressure 137/87 Blood Pressure 138/81 [Left Arm] Pulse Ox 96 94 L Medical Decision Making - Lab Data Result diagrams: 10/29/19 19:10 10/29/19 19:10 Lab Results 10/29/19 10/29/19 10/29/19 Range/Units 19:10 19:10 19:10 WBC 12.8 H (4.2-12.2) K/uL RBC 6.45 H (4.40-5.70) M/uL Hgb 14.5 (14.0-18.0) gm/dl Hct 44.7 (42.0-52.0) % MCV 69.3 L (81-97) fl MCH 22.4 L (27-33) pg MCHC 32.4 (32-36) g/dl RDW 25.6 H (11.5-14.5) % Plt Count 350 (130-400) K/uL Neutrophils % 84.0 H (47-80) % Eosinophils % Not Reportable Basophils % Not Reportable Absolute Neutrophils 10.65 Lymphocytes 8.0 L (16-45) % Monocytes 8.0 (0-9) % Platelet Estimate Normal (NORMAL) RBC Morphology Normal PT 10.7 (9.5-12.1) SECONDS INR 1.0 APTT 31.3 (24.5-39.1) SECONDS Sodium 138 (136-145) mmol/L Potassium 3.7 (3.4-4.5) mmol/L Chloride 97 L (98-107) mmol/L Carbon Dioxide 27.0 (22-29) mmol/L Anion Gap 14.0 (7-16) BUN 9 (8-23) mg/dL Creatinine 1.0 (0.7-1.2) mg/dL Estimated GFR > 60 mL/min Random Glucose 160 H (74-109) mg/dL Calcium 9.3 (8.8-10.2) mg/dL Total Bilirubin 0.90 (0.2-1.0) mg/dL Direct Bilirubin 0.2 (0-0.3) mg/dL AST 8 L (10.0-50.0) U/L ALT 7 (<41) U/L Alkaline Phosphatase 87 (40-129) U/L C-Reactive Protein 14.05 H (<0.5) mg/dL Total Protein 7.8 (6.6-8.7) g/dL Albumin 4.2 (4.0-5.0) g/dL Disposition Clinical Impression: Effusion of left knee Disposition: Acute Care Hospital Transfer Condition: (2) Stable Forms: Patient Portal Access Quality - Quality Measures Quality Measures: N/A - Blood Pressure Screening View Details: Yes Does Patient Have Any of the Following: No Blood Pressure Classification: Pre-Hypertensive BP Reading Systolic Measurement: 137 Diastolic Measurement: 87 Screening for High Blood Pressure: < Pre-Hypertensive BP, F/U Documented > [G8950] Pre-Hypertensive Follow-up Interventions: Referral to alternative/primary care provider.
[2019-10-29 20:47] LABS: ERYTHROCYTE SEDIMENTATION RATE 25 mm/hr (0-20)
== END 2019-10-29 20:03 | disposition short-term general hospital (02) ==
LOC: ER 18:31
DX: M25.462 Effusion, left knee (principal); M25.562 Pain in left knee; J44.9 Chronic obstructive pulmonary disease, unspecified; Z87.891 Personal history of nicotine dependence; I48.91 Unspecified atrial fibrillation; Z79.01 Long term (current) use of anticoagulants; Z96.652 Presence of left artificial knee joint
CPT/HCPCS: 80048; 80076; 85027; 85610; 85651; 85730; 86140; 96365; 99285